=== PATIENT | female | born 1985 | race African-American/Black ===

== ENCOUNTER 2021-05-02 01:26 | Inpatient (IN) | payer OTHER ==
[2021-05-02 01:43] VITALS: BMI 34.3
[2021-05-02] MEDS ORDERED: METOCLOPRAMIDE HCL INJECTION 10 MG/2 ML VIAL IVPB ONE (02:40)
[2021-05-02] MEDS ORDERED: SODIUM CHLORIDE 0.9% 500 ML INFUS.BAG IV ONE (02:40)
[2021-05-02] MEDS ORDERED: ACETAMINOPHEN 1000 MG/100 ML VIAL IVPB ONE (02:40)
[2021-05-02 03:26] LABS: BASO % 0.8 % (0-2.0); HEMATOCRIT 42.8 % (32.4-45.2); MCH 28.1 pg (25.7-33.7); MCHC 32.6 g/dl (32.0-36.0); MEAN PLT VOLUME 9.5 fl (7.5-11.1); MONO % 3.5 % (3.8-10.2); NEUT % 85.7 % (42.8-82.8); PLATELET COUNT 256 10^3/uL (134-434); RBC 4.98 M/mm3 (3.60-5.2); RDW 14.8 % (11.6-15.6); WHITE BLOOD COUNT 14.6 K/mm3 (4.0-10.0)
[2021-05-02 03:29] LABS: PH,URINE 8.5 (5.0-8.0); URINE APPEARANCE CLOUDY; URINE BILIRUBIN NEGATIVE (NEGATIVE); URINE COLOR YELLOW; URINE GLUCOSE (UA) NEGATIVE (NEGATIVE); URINE KETONE TRACE (NEGATIVE); URINE LEUK ESTERASE NEGATIVE (NEGATIVE); URINE NITRITE NEGATIVE (NEGATIVE); URINE PROTEIN 1+ (NEGATIVE); URINE UROBILINOGEN 0.2 mg/dL (0.2-1.0)
[2021-05-02 03:31] LABS: HCG,QUALITATIVE URINE Negative
[2021-05-02 04:05] LABS: BLOOD UREA NITROGEN 15.1 mg/dL (7-18)
[2021-05-02 04:06] LABS: ALBUMIN 3.8 g/dl (3.4-5.0); BILIRUBIN,TOTAL 0.6 mg/dL (0.2-1); CALCIUM 9.3 mg/dL (8.5-10.1)
[2021-05-02] MEDS ORDERED: morphine CARPU-JECT 4 MG/1 ML DISP.SYRIN IVPUSH ONE (05:47)
[2021-05-02] MEDS ORDERED: morphine SULFATE 4 MG/ML VIAL ONE (05:51)
[2021-05-02] MEDS ORDERED: PIPERACILLIN/TAZOB 4.5 GM 4.5 GM in DEXTROSE 5%-WATER 100 ML IVPB ONE (06:15)
[2021-05-02] MEDS ORDERED: PIPERACILLIN/TAZOB 4.5 GM 4.5 GM/100 ML BAG IVPB ONE (06:25)
[2021-05-02 06:35] LABS: EPI CELLS 8 /uL (0-25.1); URINE BACTERIA 0 /uL (0-1359); URINE RBC 0 /uL (0-23.9); URINE WBC 0 /uL (0-25.8)
[2021-05-02 07:44] LABS: INR 1.19 (0.83-1.09); PROTHROMBIN TIME (PATIENT) 13.4 SEC (9.7-13.0)
[2021-05-02] MEDS ORDERED: morphine SULFATE 4 MG/ML VIAL IVPUSH PRN ×2 (08:32→12:39)
[2021-05-02] MEDS ORDERED: SODIUM CHLORIDE 1,000 ML IV SCH ×2 (08:45→12:39)
[2021-05-02] MEDS ORDERED: ROCURONIUM BROMIDE 50 MG/5 ML SYRINGE ONE (09:45)
[2021-05-02] MEDS ORDERED: SUCCINYLCHOLINE CHLORIDE 200 MG/10 ML SYRINGE ONE (09:45)
[2021-05-02] MEDS ORDERED: PROPOFOL 20 ML ONE (09:49)
[2021-05-02] MEDS ORDERED: CEFTRIAXONE 1 GM in DEXTROSE 5%-WATER - 50 ML IVPB SCH (10:15)
[2021-05-02] MEDS ORDERED: BUPIVACAINE HCL/PF 0.5% (5MG/ML) 10 ML VIAL ONE (10:38)
[2021-05-02] MEDS ORDERED: fentaNYL CITRATE 250 MCG/5 ML VIAL ONE (10:58)
[2021-05-02] MEDS ORDERED: ceFAZolin SODIUM 1 GM VIAL ONE (11:12)
[2021-05-02] MEDS ORDERED: ceFAZolin SODIUM 1 GM VIAL IVPB ONE (11:14)
[2021-05-02] MEDS ORDERED: BUPIVACAINE HCL/PF 0.5% (5MG/ML) 10 ML VIAL IJ ONE (11:28)
[2021-05-02] MEDS ORDERED: DEXAMETHASONE SOD PHOSPHATE 4 MG/1 ML VIAL ONE (11:32)
[2021-05-02] MEDS ORDERED: NEOSTIGMINE METHYLSULFATE 0.5 MG/ML - 10 ML MDV ONE (12:03)
[2021-05-02] MEDS ORDERED: oxyCODONE HCL 5 MG TABLET PO PRN (12:46)
[2021-05-02] MEDS ORDERED: ONDANSETRON 4 MG/2 ML VIAL IVPUSH PRN (12:46)
[2021-05-02] MEDS ORDERED: PROMETHAZINE HCL 25 MG/1 ML VIAL IVPUSH PRN (12:46)
[2021-05-02] MEDS ORDERED: KETOROLAC TROMETHAMINE 30 MG/1 ML VIAL IVPUSH PRN (12:48)
[2021-05-02] MEDS ORDERED: KETOROLAC TROMETHAMINE 30 MG/1 ML VIAL ONE (12:59)
[2021-05-02] MEDS ORDERED: LACTATED RINGERS SOLUTION 1,000 ML IV SCH (13:00)
[2021-05-02] MEDS ORDERED: KETOROLAC TROMETHAMINE 30 MG/1 ML VIAL IVPUSH ONE (13:00)
[2021-05-02] MEDS ORDERED: cefTRIAXone SODIUM 1 GM VIAL ONE (17:04)
[2021-05-02] MEDS ORDERED: DEXTROSE 5%-WATER - 50 ML IVPB ONE (17:05)
[2021-05-02] MEDS: CEFTRIAXONE 1 GM in DEXTROSE 5%-WATER - 50 ML IVPB SCH (17:28)
[2021-05-02] MEDS: oxyCODONE HCL 5 MG TABLET PO PRN (21:52)
[2021-05-02] MEDS ORDERED: BENZOCAINE/MENTH/CETYLPYRD CL 1 EACH LOZENGE MM PRN (22:05)
[2021-05-03] MEDS ORDERED: PT OWN MED DRAWER 7, Y5N ONE (01:05)
[2021-05-03] MEDS: oxyCODONE HCL 5 MG TABLET PO PRN (04:14)
[2021-05-03 08:55] LABS: BASO % 0.1 % (0-2.0); HEMATOCRIT 38.8 % (32.4-45.2); HEMOGLOBIN 12.5 GM/dL (10.7-15.3); MCH 28.4 pg (25.7-33.7); MCHC 32.3 g/dl (32.0-36.0); MEAN CELL VOLUME 87.7 fl (80-96); MONO % 5.1 % (3.8-10.2); NEUT % 80.8 % (42.8-82.8); PLATELET COUNT 252 10^3/uL (134-434); RBC 4.42 M/mm3 (3.60-5.2); RDW 14.9 % (11.6-15.6)
[2021-05-03 09:22] LABS: BLOOD UREA NITROGEN 9.4 mg/dL (7-18); CALCIUM 8.5 mg/dL (8.5-10.1); PHOSPHOROUS 2.6 mg/dL (2.5-4.9)
[2021-05-03 09:23] LABS: MAGNESIUM 2.4 mg/dL (1.8-2.4)
[2021-05-03 09:24] LABS: BILIRUBIN,TOTAL 0.6 mg/dL (0.2-1); TOT PROT 6.8 g/dl (6.4-8.2)
[2021-05-03 09:25] LABS: CREATININE 0.9 mg/dL (0.55-1.3)
[2021-05-03] MEDS ORDERED: DEXTROSE 5%-WATER - 50 ML IVPB ONE ×2 (09:29→09:36)
[2021-05-03] MEDS ORDERED: cefTRIAXone SODIUM 1 GM VIAL ONE ×2 (09:29→09:36)
[2021-05-03] MEDS: CEFTRIAXONE 1 GM in DEXTROSE 5%-WATER - 50 ML IVPB SCH (10:14)
[2021-05-03 16:21] LABS: HEMATOCRIT 40.3 % (32.4-45.2); HEMOGLOBIN 13.1 GM/dL (10.7-15.3); MCH 28.1 pg (25.7-33.7); MCHC 32.4 g/dl (32.0-36.0); MEAN CELL VOLUME 86.7 fl (80-96); PLATELET COUNT 236 10^3/uL (134-434); RBC 4.65 M/mm3 (3.60-5.2); WHITE BLOOD COUNT 16.6 K/mm3 (4.0-10.0)
[2021-05-03 16:22] LABS: BASO % 0.5 % (0-2.0); MEAN PLT VOLUME 9.7 fl (7.5-11.1); MONO % 6.4 % (3.8-10.2); NEUT % 71.1 % (42.8-82.8)
[2021-05-03] MEDS: HEPARIN NA (PORCINE) 5,000 UNITS/ML 1ML VIAL SQ SCH (22:26)
[2021-05-04] MEDS ORDERED: PT OWN MED DRAWER 7, Y5N ONE (01:13)
[2021-05-04] MEDS: HEPARIN NA (PORCINE) 5,000 UNITS/ML 1ML VIAL SQ SCH ×2 (05:45→15:09)
[2021-05-04 08:57] LABS: HEMATOCRIT 40.5 % (32.4-45.2); HEMOGLOBIN 13.2 GM/dL (10.7-15.3); MCH 28.5 pg (25.7-33.7); MCHC 32.6 g/dl (32.0-36.0); MEAN CELL VOLUME 87.5 fl (80-96); MEAN PLT VOLUME 10.1 fl (7.5-11.1); PLATELET COUNT 246 10^3/uL (134-434); RBC 4.63 M/mm3 (3.60-5.2); RDW 14.9 % (11.6-15.6); WHITE BLOOD COUNT 11.8 K/mm3 (4.0-10.0)
[2021-05-04 09:18] LABS: CALCIUM 8.7 mg/dL (8.5-10.1)
[2021-05-04 09:19] LABS: BLOOD UREA NITROGEN 12.8 mg/dL (7-18); MAGNESIUM 2.2 mg/dL (1.8-2.4)
[2021-05-04] MEDS ORDERED: cefTRIAXone SODIUM 1 GM VIAL ONE (10:05)
[2021-05-04] MEDS ORDERED: DEXTROSE 5%-WATER - 50 ML IVPB ONE (10:05)
[2021-05-04] MEDS: CEFTRIAXONE 1 GM in DEXTROSE 5%-WATER - 50 ML IVPB SCH ×2 (10:14→10:52)
[2021-05-04] MEDS ORDERED: DOCUSATE SODIUM 100 MG CAPSULE (FP) PO PRN (11:11)
[2021-05-04] MEDS ORDERED: AMOX TR/POT CLAV 875MG/125MG TABLETS (FP) PO SCH (11:15)
[2021-05-04 14:19] VITALS: BP 111/65; PULSE 75; TEMP 98.5
== END 2021-05-04 16:00 | disposition home or self-care (01) | DRG 343 ==
LOC: JER 01:26 → JERBED 06:15 → J8W 13:27
PROVIDERS: ADMIT Internal Medicine; ATTEND Internal Medicine
PROC: 0DTJ4ZZ Resection of Appendix, Percutaneous Endoscopic Approach (ICD-10-PCS; principal; 2021-05-02 10:30)
DX: K35.890 Other acute appendicitis without perforation or gangrene (principal); R11.2 Nausea with vomiting, unspecified; D72.829 Elevated white blood cell count, unspecified; D25.9 Leiomyoma of uterus, unspecified; F12.90 Cannabis use, unspecified, uncomplicated; E66.9 Obesity, unspecified; Z68.34 Body mass index [BMI] 34.0-34.9, adult; N83.202 Unspecified ovarian cyst, left side; N83.201 Unspecified ovarian cyst, right side
CPT/HCPCS: 36415; 71045-TC-FY; 74177-TC; 80048; 80053; 81003; 83690; 83735; 84100; 84703; 85025; 85027; 85610; 85730; 86850; 86900; 86901; 87040; 87086; 88304-TC; 93005; 93010; 94760; 99285-25; C9803; J0131; J1644; U0003; U0005